=== PATIENT | female | born 1970 | race Caucasian/White ===

== ENCOUNTER → 2017-03-15 | Outpatient (CLI) | payer BC | END | disposition home or self-care (01) | LOC: CVU 09:45 | PROVIDERS: ATTEND Internal Medicine Cardiovascular Disease | DX: I07.1 Rheumatic tricuspid insufficiency (principal) | CPT/HCPCS: 93306 ==

== ENCOUNTER → 2018-05-09 | Outpatient (CLI) | payer BC | END | disposition home or self-care (01) | LOC: RAD 15:49 | PROVIDERS: ATTEND Physician Assistant | DX: R10.9 Unspecified abdominal pain (principal); Z90.49 Acquired absence of other specified parts of digestive tract; Z90.710 Acquired absence of both cervix and uterus | CPT/HCPCS: 74176 ==

== ENCOUNTER → 2018-11-19 | Outpatient (CLI) | payer BC | END | disposition home or self-care (01) | LOC: CVU 07:05 | PROVIDERS: ATTEND Internal Medicine | DX: M79.605 Pain in left leg (principal); Z86.73 Personal history of transient ischemic attack (TIA), and cerebral infarction without residual deficits | CPT/HCPCS: 93922 ==

== ENCOUNTER → 2020-09-22 | Outpatient (CLI) | payer BC ==
[~2020-09-22] MED LIST: BUPR-86 PO; ESTR10TA PO; ESTROGEN PO; METO25TA2 PO; RANI150T4 PO; SERT100T32 PO; TESTOSTERONE PO; THYR60TA PO
== END | disposition home or self-care (01) ==
LOC: CVU 07:03
PROVIDERS: ATTEND Surgery
DX: I08.1 Rheumatic disorders of both mitral and tricuspid valves (principal); R60.9 Edema, unspecified
CPT/HCPCS: 93306; 93356

== ENCOUNTER → 2020-10-20 | Outpatient (CLI) | payer BC, OTHER | END | disposition home or self-care (01) | LOC: CFH 08:39 | PROVIDERS: ATTEND Student in an Organized Health Care Education/Training Program | DX: I25.10 Atherosclerotic heart disease of native coronary artery without angina pectoris (principal); E78.00 Pure hypercholesterolemia, unspecified; R60.0 Localized edema | CPT/HCPCS: 75571 ==

== ENCOUNTER → 2020-10-29 | Outpatient (CLI) | payer BC | END | disposition home or self-care (01) | LOC: CVU 07:14 | PROVIDERS: ATTEND Student in an Organized Health Care Education/Training Program | DX: I83.93 Asymptomatic varicose veins of bilateral lower extremities (principal); R60.0 Localized edema; E78.00 Pure hypercholesterolemia, unspecified; M79.662 Pain in left lower leg | CPT/HCPCS: 93922; 93970 ==